=== PATIENT | male | born 2000 | race Caucasian/White ===

== ENCOUNTER 2024-10-21 13:09 | Emergency (ER) | payer SELFPAY ==
[2024-10-21 13:23] VITALS: BP 120/52; PULSE 54; RESP 16; TEMP 36.8; O2SAT 100; BMI 25.7
[2024-10-21 13:26] VITALS: BP 110/85; PULSE 85; RESP 18; TEMP 36.8; O2SAT 100
--- OUTSIDE RECORDS SUMMARY | 2024-10-21 13:38 | XMS_ITS | Clinical Summary ---
Author Organization [facility] Address [address] [place] [address] Care Team Providers Care Life Teacher Name Role Phone Manuel David MD Primary Care Provider [phone] Medications No known medications Active Problems No known active problems Social History Tobacco Use Types Packs/Day Years Used Date Smoking Tobacco: Never Assessed Sex and Gender Information Value Date Recorded Sex Assigned at Not on file Legal Sex Male 8:38 PM EDT Gender Identity Not on file Sexual Orientation Not on file Last Filed Vital Signs Vital Sign Reading Time Taken Comments Blood Pressure 144/77 01/24/2024 10:22 AM EST Pulse 60 01/24/2024 10:22 AM EST Temperature - - Respiratory Rate - - Oxygen Saturation 99% 01/24/2024 10:22 AM EST Inhaled Oxygen Concentration - - Weight - - Height - - Body Mass Index - - Plan of Treatment Health Maintenance Due Date Last Done Comments Dental Oral Exam 2002 Dental Prophylaxis 2002 Dental X-Ray: Bitewings 2002 Dental X-Ray: Full Mouth 2002 [facility]-Depression Screening 2002 [facility]-HIV Screening 2002 [facility]-Hepatitis C Screening 2002 [facility]-Infant/Child/Adol SDOH Screenings 2002 HPV Vaccines (1 - Male 3-dose series) 2017 [facility]- SDOH Screenings 2020 [facility]-Adult SDOH Screenings 2020 [facility]-SBCUI-20 Vaccine (1 - season) 2023 [facility]-DTaP,Tdap,and Td Vaccines (7 - Td or Tdap) 11/07/2024 11/07/2014, 08/05/2006, 11/07/2003, Additional history exists [facility]-Influenza Vaccine (#1) 2024 [facility]-Zoster Vaccines (1 of 2) 2052 08/05/2006, 08/26/2003 [facility]-HIB Vaccines Completed 08/26/2003, 03/2002, 2002, Additional history exists [facility]-Hepatitis B Vaccines Completed 004, 2002, 2002 [facility]-IPV Vaccines Completed 08/05/2006, , 2002, Additional history exists [facility]-Varicella Vaccines Completed 08/05/2006, 2003 [facility]-Hepatitis A Vaccines Completed 06/04/2015, 10/13 [facility]-Pneumococcal Vaccine: Pediatrics (0 to 5 Years) and At-Risk Patients (6 to 49 Years) Aged Out No longer eligible based on patient's age to complete this topic [facility]-Rotavirus Vaccines Aged Out No lo nger eligible based on patient's age to complete this topic Insurance Member Subscriber Plan / Payer (Ef fective 2023-Present) Name:Godfrey Bloom Relation to Subscriber:Self Name:Godfrey Bloom Payer ID:Not on file Type:Not on file Address: [address] [address] Care Teams Life Teacher Relationship Specialty Start Date End Date Manuel David MD [address] [place] [address] [place] [address] PCP - General 07/25/20
--- NOTE | 2024-10-21 13:40 | PC.NURSE ---
patient endorses that he blieves he removed foreign body out of eye
--- NOTE | 2024-10-21 13:44 | HMH.EDGENADL ---
Discharge Plan Disposition Patient Disposition: Left Against Medical Advice Referrals Follow up/Referrals: Provider,Referral, [Primary Care Provider, Medical] - See instructions Clinical Impressions Clinical Impression: Left against medical advice Print Language Print Language: Thai Discharge ED Provider: Leandro Grewal General Adult HPI <JOSY Valadez - Last Filed: 10/21/24 14:20> General Chief complaint: Eye Problems Stated complaint: AO-poss object in L eye Time Seen by Provider: 10/21/24 13:12 Mode of Arrival: Ambulatory Source of Information: Patient Description of Symptoms (Recalled from ER Triage Doc. by RN): patient presents to the emergency room for evaluation of steel in his left eye. patient was working on a truck with his father in law when something flung back and got in his eye. patient is unsure if it is actually metal. History of Present Illness HPI narrative: Patient presents with foreign body sensation in his left eye. He reports that he was taking a bolt off of a truck with some small pieces of metal coming off. He reports that he does see a foreign body on the medial aspect of the left eye. He denies wearing any contacts. Denies any eye discharge. This occurred around 1 and half hours ago. He has tried irrigation without success. Denies fevers or vomiting. Unknown last tetanus. MD complaint: Foreign body in eye Onset (ago): hour(s) Location: eyes Radiation: non-radiation Severity: mild Consistency: constant Relieving factors: none Exacerbating factors: none Associated symptoms: denies other symptoms Treatments prior to arrival: other (Irrigation) Related Data Allergies Allergy/AdvReac Type Severity Reaction Status Date / Time nut - unspecified Allergy Rash Verified 10/21/24 13:26 PFSH <JOSY Valadez - Last Filed: 10/21/24 14:20> [facility] Disclaimer: The information contained in this section may have been updated after the patient was seen, as this information can be updated by other users. Social History (Updated 10/21/24 @ 14:20 by JOSY Valadez) Smoking Status: Never smoker alcohol intake: never current occupational status: other Travel in the last 8 weeks?: None Have you lived/traveled outside US in past 30 days?: No Contact w/someone who lives/traveled outside US past 30 days?: No Exposure to someone with infectious disease in past 14 days?: No Do you have a fever (greater than 100.4 F or 38 C)?: No Have you tested positive for COVID-19?: No Exposed to someone with COVID-19 in past 14 days?: No Do you have a sore throat?: No Do you have a cough?: No Do you have any weakness?: No Do you have any diarrhea?: No Are you experiencing any unusual bleeding?: No Do you have any muscle aches/pain?: No Do you have any abdominal pain?: No Are you experiencing loss of taste or smell?: No <JOSY Valadez - Last Filed: 10/21/24 14:20> ROS Obtained: Yes Systems reviewed as appropriate & no additional complaints except as documented Physical Exam <JOSY Valadez Last Filed: 10/21/24 14:20> General General appearance: alert and in no apparent distress Head Head exam: atraumatic and normocephalic Eye Eye exam: Present other (Left eye 2 o'clock corneal FB noted 1-2 m ) Chest Chest inspection: Present symmetric chest wall rise Respiratory Respiratory exam: Present normal lung sounds bilaterally; Absent wheezes or stridor Cardiovascular Cardiovascular exam: Present regular rate and normal rhythm; Absent systolic murmur Extremities Exam Extremities exam: Present full ROM Neurological Exam Neurological exam: Present alert and oriented X3 Psychiatric Psychiatric exam: Present normal affect and normal mood Skin Skin exam: Present warm, dry and intact Medical Decision Making <JOSY Valadez - Last Filed: 10/21/24 14:20> Medical Records Screening: Per USPSTF and CDC recommendations, given the prevalence of disease in our region, it is our hospital?s policy to screen for HIV and viral Hepatitis for all patients aged 18 and over and those with ongoing risk factors. Moris Inquiry Pt receiving controlled substance: No Vital Signs: 10/21/24 13:23 10/21/24 13:26 10/21/24 14:06 Temperature 98.2 F 98.2 F 98.2 F Temperature Source Oral Oral Oral Pulse Rate 85 85 Pulse Rate [Right Radial] 54 L Respiratory Rate 16 18 18 Blood Pressure 110/85 110/85 Blood Pressure [Right Arm] 120/52 L Blood Pressure Mean [Right Arm] 74 Blood Pressure Source Automatic Cuff Automatic Cuff Blood Pressure Source [Right Arm] Automatic Cuff Blood Pressure Position Sitting Sitting Blood Pressure Position [Right Arm] Sitting 02 Sat by Pulse Oximetry 100 100 Oxygen Delivery Method Room Air Room Air Room Air Orders (Tests/Meds): ED MEDICATIONS Discontinued Medications Generic Name Dose Route Start Last Admin Trade Name Freq PRN Reason Stop Dose Admin Tetanus/Reduced Diphtheria/Acell Pertussis 0.5 ml 10/21/24 13:34 10/21/24 13:48 Tet/Diphth/Pert-Adult 0.5ml Syringe IM 10/21/24 13:35 Not Given .ONCE ONE Tetracaine HCl 0 ml 10/21/24 13:34 Tetracaine 0.5% Opth Janny 15ml OP 10/21/24 13:35 ONCE ONE Medical Decision Narrative: In summary patient is a 24-year-old man who presents the emergency department for evaluation of foreign body in eye. Patient is hemodynamically upon arrival, afebrile. Foreign body noted at approximately 2 o'clock location in the left eye. Differential diagnosis includes foreign body, rust ring, corneal abrasion. Initial workup will be conducted with tetracaine application with fluorescein and Webb lamp exam. Initial inventions include tetracaine and tetanus. I initially evaluated the patient and placed orders. The patient then left AMA while I was in the room with another patient. I was not able to discuss this with them prior to signing out. <Leandro Grewal MD - Last Filed: 10/21/24 14:52> Vital Signs: 10/21/24 13:23 10/21/24 13:26 10/21/24 14:06 Temperature 98.2 F 98.2 F 98.2 F Temperature Source Oral Oral Oral Pulse Rate 85 85 Pulse Rate [Right Radial] 54 L Respiratory Rate 16 18 18 Blood Pressure 110/85 110/85 Blood Pressure [Right Arm] 120/52 L Blood Pressure Mean [Right Arm] 74 Blood Pressure Source Automatic Cuff Automatic Cuff Blood Pressure Source [Right Arm] Automatic Cuff Blood Pressure Position Sitting Sitting Blood Pressure Position [Right Arm] Sitting 02 Sat by Pulse Oximetry 100 100 Oxygen Delivery Method Room Air Room Air Room Air Orders (Tests/Meds): ED MEDICATIONS Discontinued Medications Generic Name Dose Route Start Last Admin Trade Name Freq PRN Reason Stop Dose Admin Tetanus/Reduced Diphtheria/Acell Pertussis 0.5 ml 10/21/24 13:34 10/21/24 13:48 Tet/Diphth/Pert-Adult 0.5ml Syringe IM 10/21/24 13:35 Not Given .ONCE ONE Tetracaine HCl 0 ml 10/21/24 13:34 Tetracaine 0.5% Opth Janny 15ml OP 10/21/24 13:35 ONCE ONE Medical Decision Narrative: In summary patient is a 24-year-old man who presents the emergency department for evaluation of foreign body in eye. Patient is hemodynamically upon arrival, afebrile. Foreign body noted at approximately 2 o'clock location in the left eye. Differential diagnosis includes foreign body, rust ring, corneal abrasion. Initial workup will be conducted with tetracaine application with fluorescein and Webb lamp exam. Initial inventions include tetracaine and tetanus. I initially evaluated the patient and placed orders. The patient then left AMA while I was in the room with another patient. I was not able to discuss this with them prior to signing out. I was consulted by the RITCHIE, and we discussed the complexity of the problems being addressed. I approve the treatment and management plan for this patient's care in the emergency department, thus performing a substantive portion of the medical decision making. Leandro Grewal MD Critical Care <JOSY Valadez - Last Filed: 10/21/24 14:20> Critical Care Time Critical Care Time: No
--- NOTE | 2024-10-21 13:50 | PC.NURSE ---
patient refused tdap vaccination order. provider notified
[2024-10-21 14:06] VITALS: BP 110/85; PULSE 85; RESP 18; TEMP 36.8; O2SAT 100
== END 2024-10-21 14:02 | disposition left against medical advice (07) ==
PROVIDERS: Emergency Provider Student in an Organized Health Care Education/Training Program
DX: T15.02XA Foreign body in cornea, left eye, initial encounter (principal); W20.8XXA Other cause of strike by thrown, projected or falling object, initial encounter
CPT/HCPCS: 90471; 99283

== ENCOUNTER 2025-01-01 06:03 | Emergency (ER) | payer MEDICAID, SELFPAY ==
--- OUTSIDE RECORDS SUMMARY | 2025-01-01 06:09 | XMS_ITS | Clinical Summary ---
Author Organization [facility] Address [address] [place] [address] Care Team Providers Care Upholstery Trimmer Name Role Phone Manuel David MD Primary Care Provider [phone] Medications No known medications Active Problems No [...] [facility]-HIV Screening 2002 [facility]-Hepatitis C Screening 2002 [facility]-/Child/Adol SDOH Screenings 2002 HPV Vaccines (1 - Male 3-dose series) 2017 [facility]- SDOH Screenings 2020 [facility]-Adult SDOH Screenings 2020 [facility]-DTaP,Tdap,and Td Vaccines (7 - Td or Tdap) 11/07/2024 11/07/2014, 08/05/2006, 11/07/2003, Additional history exists [facility]-PKPMW-47 Vaccine ( - season) 2024 [facility]-Influenza Vaccine (#1) 2024 [facility]-Zoster Vaccines (1 [...] patient's age to complete this topic Insurance Care Teams Upholstery Trimmer Relationship Specialty Start Date End Date Manuel David MD [address] [place] [address] [place] [address] PCP - General 07/25/20
--- OUTSIDE RECORDS SUMMARY | 2025-01-01 06:09 | XMS_ITS | Data Portability ---
Author Organization [place] - [facility] Address [address] [place] [address] Care Team Providers Care Life Skills Specialist Name Role Phone ODELL ARANA Primary Care Provider Assessment Encounter Date Assessment Date Assessment LastModified by Organization Details LastModified Time 08/24/2023 08/24/2023 Patient with moderate sized wart on the webbing of his right hand between his 4th and 5th digit. There are multiple growths and will probably require some laser treatment he has a solitary wart on the top of his left great toe. Applied some verruca freeze here in the office without complication. Patient would also like some general health maintenance labs, however he has not fast will make a follow-up appointment 3 months at that time do his fasting labs. [email or web address] Not available 08/24/2023 13:47:05 Plan of Treatment Reminders Order Date Submit Date Provider Last Modified By Organization Details Last Modified Time Details Appointments None recorded. Lab None recorded. Referral dermatolog ist referral - Rather large wart on webbing right hand 2023 024 [facility], [address], [place], [address], 14:58:28 Procedures cryosurger y (PROC) 2023 024 [email or web address] Not available 08:17:33 Surgeries None recorded. Imaging None recorded. Medication Orders clotrimazo le-betamet hasone 1 %-0.05 % topical cream 2023 024 [id number], [address] [place], [address], 13:40:42 nystatin 100,000 unit/gram topical powder 2023 024 [id number], [address] [place], [address], 13:40:42 Patient TargetsNo targets recorded. Patient InstructionsNo instructions recorded. Reason for Referral Cut Pressman Referral for V erruca vulgaris Rather large wart on webbing right hand Referring Physician: Odell Arana [facility], Encounter Date: 08/24/2023 Procedures Surgical History Date Name Laterality Status Provider Name and Address Organization Details Recorded Time 0 [facility]end[facility] completed [facility] 08/24/2023 13:06:27 Imaging Results None recorded. Procedure Notes None recorded. Medical Equipment None Reported. Allergies No known drug allergies Medications Name Sig Start Date Stop Date Status Note LastModified by Organization Details LastModified Time benzoyl peroxide 10 % topical cleanser active Not Available Not Available Not Available clotrimazo le-betamet hasone 1 %-0.05 % topical cream APPLY TO AFFECTED AND SURROUNDING AREAS EVERY MORNING AND EVENING FOR 2 WEEKS active Not Available Not Available No t Available nystatin 100,000 unit/gram topical powder APPLY TO AFFECTED AREA TWICE A DAY active Not Available Not Available Not Available Vitals Date Recorded Body height Body mass index (BMI) Body weight Body temperature Oxygen saturation Oxygen saturation in Arterial blood by Pulse oximetry Heart rate Systolic And Diastolic Provider Name and Address Organization Details Last Updated DateTime 4 165.1 cm 25 kg/m2 99669.8 6 g 97.9 [degF] 98 % 98 % 62 /min 98/62 mm[Hg] [facility] 13:06:03 Social History Question Answer Notes LastModified by Organization D etails LastModified Time Do You Have An Advance Directive? No Information n ot available 08/24/2023 Are You Blind Or Do You Have Difficulty Seeing? No [email or web address] Information n ot available 08/24/2023 Are You Passively Exposed To Smoke? No Information no t available 08/24/2023 Sex: Male Functional Status Question Answer Note LastModified by Organizat ion Details LastModified Time Do you use any illicit or recreational drugs? No [email or web address] Information not available 08/24/2023 What is your level of alcohol consumption? 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 Moderate [email or web address] Information not available 08/24/2023 Mental Status None recorded. Family History Nothing Reported. Medical History No medical history recorded. Past Encounters Encounter ID Performer Location Encounter Start Date Encounter Closed Date Diagnosis/Indication Diagnosis SNOMED-CT Code Diagnosis ICD10 Code Diagnosis IMO Codes Diagnosis Note [id number] Odell Arana DO [facility]- Dept [address] [place] [address] 08/24/2023 12:33:31 08/24/2023 13:32:14 Verruca vulgaris 34583830 B07.8 Abdominal pain 72892284 R10.9 discussed the importance of eating healthy diet Tinea pedis 3516467 B35. 3 Health Concerns Section Related Observation LastModified by Organization Detai ls LastModified Time None Recorded Concern Status LastModified by Organization Details LastModified Time None Recorded Advance Directives Directive N: Payers Insurance Date Sequence Insurance Name Policy Number Policy Galan Covered Member ID Galan Member ID Guarantor Name 08/25/2023 1 [employer] (O) Godfrey Bloom [id number] Godfrey Bloom 08/25/2023 1 [employer] (MEDICAID REPLACEMENT - O) Godfrey Bloom [id number] Godfrey Bloom Notes Date Note Type Note Provider Name and Address Organization Details Recorded Time 08/24/2023 text/html patient is a very pleasant 23-year-old white male who comes in today to establish care at the clinic. patient is complaining of some warts and rash on his feet. 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 patient states about 6 months ago he developed a small wart on his right hand however over time its enlarged. He also has a wart on his left great toe. Patient has use some mrmo-bhj-fospztb freeze spray along with compound W with minimal relief. He is also complaining of a red dry irritated rash on the bottom of his feet he was diagnosed with athlete's feet in the past, he reports having some powder which she put in his boots it seemed to help but he is ran out. Odell Arana, [address], [address], [place], [address], [facility] [[email or web address]] - [facility] - [place] & [place] 08/24/2023 13:47:25
[2025-01-01 06:20] VITALS: BP 144/84; PULSE 98; RESP 16; TEMP 37.1; O2SAT 99; BMI 25.7
[2025-01-01 06:23] VITALS: BP 144/84; PULSE 98; RESP 16; TEMP 37.1; O2SAT 99
--- NOTE | 2025-01-01 06:27 | HMH.EDGENADL ---
Discharge Plan Disposition Patient Disposition: Home, Self-Care Prescriptions Prescriptions: New ondansetron 4 mg tablet,disintegrating 4 mg PO Q6H PRN (Reason: nausea and vomiting) Qty: 16 0RF Referrals Follow up/Referrals: Les Toney II, MD [Staff Physician, Gastroenterology] - See instructions Provider,MD Lilia [Primary Care Provider, Medical] - See instructions Activity Restrictions/Add. Instructions Additional Instructions/Restrictions: I am referring you to Dr. Toney with the gastroenterology team to further investigate your abdominal pain, nausea and vomiting as well as your elevated pancreas enzymes. You are being prescribed Zofran to help with nausea. Take this as prescribed. I encourage you to drink a clear liquid diet until your symptoms have resolved and slowly introduce foods back into your diet and avoid fatty and greasy foods. If you develop any new or worsening symptoms, or if you become concerned for your health for any reason, return to the emergency department for evaluation. Clinical Impressions Clinical Impression: Abdominal pain, Elevated lipase Instructions Patient Instructions: Acute Pancreatitis, DI for Diarrhea and Traveler's Diarrhea in Adults, DI for Diarrhea and Traveler's Diarrhea in Children, DI for Nausea in Adults, DI for Nausea in Children Print Language Print Language: Malay Discharge ED Provider: Wili Li General Adult HPI <Wili Li MD - Last Filed: 01/01/25 06:57> General Chief complaint: Nausea/Vomiting/Diarrhea Stated complaint: stomach pain, vomiting Time Seen by Provider: 01/01/25 06:10 Mode of Arrival: Ambulatory Source of Information: Patient Description of Symptoms (Recalled from ER Triage Doc. by RN): PT presents to the ED for evaluation of vomiting. PT stated he has had x2 episodes of vomiting this am. PT stated he had diarrhea on 05/03/2024. PT denies trouble urinating. Denies meds taking for vomiting. History of Present Illness HPI narrative: 24-year-old male presents for abdominal pain and vomiting. He reports that he has had this happen intermittently throughout his life and it did not get any better after getting his appendix out. He reports that he woke up feeling like this. It usually gets better within a few hours spontaneously. Reports nonbloody vomiting. Abdominal pain is midline and bilateral lower abdomen. Denies significant testicular pain. Denies any pain in his upper abdomen. Denies any urinary symptoms. Related Data Previous Rx's ?Medication ?Instructions ?Recorded ondansetron 4 mg disintegrating 4 mg PO Q6H PRN nausea and 01/01/25 tablet vomiting #16 tabs Allergies Allergy/AdvReac Type Severity Reaction Status Date / Time nut - unspecified Allergy Rash Verified 01/01/25 06:45 PFS <Wili Li MD - Last Filed: 01/01/25 06:57> [facility] Disclaimer: The information contained in this section may have been updated after the patient was seen, as this information can be updated by other users. Social History (Updated 10/21/24 @ 14:20 by JOSY Valadez) Smoking Status: Never smoker alcohol intake: never current occupational status: other Travel in the last 8 weeks?: None Have you lived/traveled outside [place] in past 30 days?: No Contact w/someone who lives/traveled outside [place] past 30 days?: No Exposure to someone with infectious disease in past 14 days?: No Do you have a fever (greater than 100.4 F or 38 C)?: No Have you tested positive for COVID-19?: No Exposed to someone with COVID-19 in past 14 days?: No Do you have a sore throat?: No Do you have a cough?: No Do you have any weakness?: No Do you have any diarrhea?: No Are you experiencing any unusual bleeding?: No Do you have any muscle aches/pain?: No Do you have any abdominal pain?: No Are you experiencing loss of taste or smell?: No <Wili Li MD - Last Filed: 01/01/25 06:57> ROS Obtained: Yes All systems reviewed & no additional complaints except as documented Physical Exam <Wili Li MD - Last Filed: 01/01/25 06:57> General General appearance: alert and in no apparent distress Head Head exam: atraumatic and normocephalic Eye Eye exam: Present normal appearance, PERRL and EOMI ENT ENT exam: Present normal oropharynx and normal external ear exam Neck Neck exam: Present normal inspection and full ROM Chest Chest inspection: Present normal inspection and symmetric chest wall rise; Absent tenderness Respiratory Respiratory exam: Present normal lung sounds bilaterally; Absent respiratory distress Cardiovascular Cardiovascular exam: Present regular rate and normal rhythm Abdominal Exam Abdominal exam: Present soft; Absent distention, tenderness or guarding Extremities Exam Extremities exam: Present normal inspection; Absent edema or joint swelling Back Exam Back exam: Present normal inspection; Absent tenderness Neurological Exam Neurological exam: Present alert and oriented X3; Absent motor sensory deficit Psychiatric Psychiatric exam: Present normal affect and normal mood Skin Skin exam: Present warm, dry and normal color Lymphatic Lymphatic Findings: no adenopathy Medical Decision Making <Wili Li MD - Last Filed: 01/01/25 06:57> Medical Records Medical records reviewed: Yes I reviewed the patient's medical records. Screening: Per USPSTF and CDC recommendations, given the prevalence of disease in our region, it is our hospital?s policy to screen for HIV and viral Hepatitis for all patients aged 18 and over and those with ongoing risk factors. Moris Inquiry Pt receiving controlled substance: No Moris was queried for this patient: No Vital Signs: 01/01/25 06:20 01/01/25 06:23 01/01/25 07:01 Temperature 98.7 F 98.7 F Temperature Source Oral Oral Pulse Rate 98 H 56 L Pulse Rate [Right] 98 H Respiratory Rate 16 16 Blood Pressure 144/84 H 116/59 L Blood Pressure [Right Arm] 144/84 H Blood Pressure Mean [Right Arm] 104 02 Sat by Pulse Oximetry 99 99 97 Oxygen Delivery Method Room Air Room Air Room Air 01/01/25 07:30 Temperature Temperature Source Pulse Rate 55 L Pulse Rate [Right] Respiratory Rate Blood Pressure 115/55 L Blood Pressure [Right Arm] Blood Pressure Mean [Right Arm] 02 Sat by Pulse Oximetry 98 Oxygen Delivery Method Room Air Lab Data Lab results reviewed: Yes I reviewed the patient's lab results. Lab Results 01/01/25 06:09: Urine Color Yellow, Urine Appearance Clear, Urine pH 5.5, Ur Specific [place] >= 1.030, Urine Protein Negative, Urine Glucose (UA) Negative, Urine Ketones Negative, Urine Blood Negative, Urine Nitrate Negative, Urine Bilirubin Negative, Urine Urobilinogen 0.2, Ur Leukocyte Esterase Negative, Urine RBC None, Urine WBC 3-5, Ur Squamous Epith Cells 3-5, Urine Bacteria Trace 01/01/25 06:35: WBC 14.6 H, RBC 5.19, Hgb 15.4, Hct 44.5, MCV 85.7, MCH 29.7, MCHC 34.6, RDW 11.8, Plt Count 314, MPV 9.6, Neut % (Auto) 82.7 H, Lymph % (Auto) 10.8, [place] % (Auto) 4.8, Eos % (Auto) 0.9, Baso % (Auto) 0.3, Neut # (Auto) 12.0 H, Lymph # (Auto) 1.6, [place] # (Auto) 0.7, Eos # (Auto) 0.1, Baso # (Auto) 0.0, Sodium 139, Potassium 4.2, Chloride 101, Carbon Dioxide 27, Anion Gap 15.2 H, BUN 15, Creatinine 0.80, Estimated Creat Clear 144, Estimated GFR 121, Est GFR ( Amer) 146, Glucose 118 H, Calcium 8.9, Magnesium 1.9, Total Bilirubin 0.4, AST 29, ALT 30, Alkaline Phosphatase 57, Total Protein 8.5 H, Albumin 4.9, Globulin 3.6 H, Albumin/Globulin Ratio 1.4, Triglycerides 50, Lipase 442 H 01/01/25 06:35 01/01/25 06:35 Orders (Tests/Meds): ED MEDICATIONS Discontinued Medications Generic Name Dose Route Start Last Admin Trade Name Freq PRN Reason Stop Dose Admin Ketorolac Tromethamine 30 mg 01/01/25 06:31 01/01/25 06:41 Ketorolac 30mg/Ml Vial IV 01/01/25 06:32 30 mg ONCE ONE Administration Ondansetron HCl 4 mg 01/01/25 06:31 01/01/25 06:41 Ondansetron 4mg/2ml Vial IV 01/01/25 06:32 4 mg ONCE ONE Administration ORDERS Category Date Time Status CT abdomen pelvis wo con Stat Cat Scan 01/01/25 07:37 Completed POCUS Point of Care (ER Only) Stat Exams 01/01/25 07:16 Completed CBC w/Auto Diff [Complete Blood Count Auto Diff] Stat Lab 01/01/25 06:35 Completed CMP [Comprehensive Metabolic Panel] Stat Lab 01/01/25 06:35 Completed Lipase Stat Lab 01/01/25 06:35 Completed Magnesium Stat Lab 01/01/25 06:35 Completed Triglycerides Stat Lab 01/01/25 06:35 Completed UA [Urinalysis and Microscopic] Stat Lab 01/01/25 06:09 Completed Medical Decision Narrative: 24-year-old male with history of intermittent abdominal pain and vomiting presents for lower abdominal pain and vomiting.. History was obtained via interactive discussion with patient, family. On arrival, patient is [afebrile, hemodynamically stable, satting appropriately, alert, oriented x4, GCS 15], moving all extremities spontaneously. Full physical exam performed and significant for no significant abdominal tenderness on exam. Patient is actively vomiting however. Differential includes but is not limited to gastroenteritis, intussusception, UTI, kidney stone. Patient was given Toradol and Zofran for symptomatic management and correction of underlying abnormalities. Workup initiated including CBC CMP lipase urinalysis. On re-evaluation, patient [remains afebrile, HD stable.] Laboratory workup independently interpreted by me and significant for []. Imaging independently interpreted by me and significant for []. See radiology read for full review of final results. EKG independently interpreted by me and significant for []. [] was considered, but deemed unnecessary due to []. Given patient history, exam and workup, patient's presentation most likely represents []. <Leandro Grewal MD - Last Filed: 01/01/25 08:20> Vital Signs: 01/01/25 06:20 01/01/25 06:23 01/01/25 07:01 Temperature 98.7 F 98.7 F Temperature Source Oral Oral Pulse Rate 98 H 56 L Pulse Rate [Right] 98 H Respiratory Rate 16 16 Blood Pressure 144/84 H 116/59 L Blood Pressure [Right Arm] 144/84 H Blood Pressure Mean [Right Arm] 104 02 Sat by Pulse Oximetry 99 99 97 Oxygen Delivery Method Room Air Room Air Room Air 01/01/25 07:30 Temperature Temperature Source Pulse Rate 55 L Pulse Rate [Right] Respiratory Rate Blood Pressure 115/55 L Blood Pressure [Right Arm] Blood Pressure Mean [Right Arm] 02 Sat by Pulse Oximetry 98 Oxygen Delivery Method Room Air Lab Data Lab Results 01/01/25 06:09: Urine Color Yellow, Urine Appearance Clear, Urine pH 5.5, Ur Specific [place] >= 1.030, Urine Protein Negative, Urine Glucose (UA) Negative, Urine Ketones Negative, Urine Blood Negative, Urine Nitrate Negative, Urine Bilirubin Negative, Urine Urobilinogen 0.2, Ur Leukocyte Esterase Negative, Urine RBC None, Urine WBC 3-5, Ur Squamous Epith Cells 3-5, Urine Bacteria Trace 01/01/25 06:35: WBC 14.6 H, RBC 5.19, Hgb 15.4, Hct 44.5, MCV 85.7, MCH 29.7, MCHC 34.6, RDW 11.8, Plt Count 314, MPV 9.6, Neut % (Auto) 82.7 H, Lymph % (Auto) 10.8, [place] % (Auto) 4.8, Eos % (Auto) 0.9, Baso % (Auto) 0.3, Neut # (Auto) 12.0 H, Lymph # (Auto) 1.6, [place] # (Auto) 0.7, Eos # (Auto) 0.1, Baso # (Auto) 0.0, Sodium 139, Potassium 4.2, Chloride 101, Carbon Dioxide 27, Anion Gap 15.2 H, BUN 15, Creatinine 0.80, Estimated Creat Clear 144, Estimated GFR 121, Est GFR ( Amer) 146, Glucose 118 H, Calcium 8.9, Magnesium 1.9, Total Bilirubin 0.4, AST 29, ALT 30, Alkaline Phosphatase 57, Total Protein 8.5 H, Albumin 4.9, Globulin 3.6 H, Albumin/Globulin Ratio 1.4, Triglycerides 50, Lipase 442 H Orders (Tests/Meds): ED MEDICATIONS Discontinued Medications Generic Name Dose Route Start Last Admin Trade Name Freq PRN Reason Stop Dose Admin Ketorolac Tromethamine 30 mg 01/01/25 06:31 01/01/25 06:41 Ketorolac 30mg/Ml Vial IV 01/01/25 06:32 30 mg ONCE ONE Administration Ondansetron HCl 4 mg 01/01/25 06:31 01/01/25 06:41 Ondansetron 4mg/2ml Vial IV 01/01/25 06:32 4 mg ONCE ONE Administration ORDERS Category Date Time Status CT abdomen pelvis wo con Stat Cat Scan 01/01/25 07:37 Completed POCUS Point of Care (ER Only) Stat Exams 01/01/25 07:16 Completed CBC w/Auto Diff [Complete Blood Count Auto Diff] Stat Lab 01/01/25 06:35 Completed CMP [Comprehensive Metabolic Panel] Stat Lab 01/01/25 06:35 Completed Lipase Stat Lab 01/01/25 06:35 Completed Magnesium Stat Lab 01/01/25 06:35 Completed Triglycerides Stat Lab 01/01/25 06:35 Completed UA [Urinalysis and Microscopic] Stat Lab 01/01/25 06:09 Completed Medical Decision Narrative: 24-year-old male with history of intermittent abdominal pain and vomiting presents for lower abdominal pain and vomiting.. History was obtained via interactive discussion with patient, family. On arrival, patient is [afebrile, hemodynamically stable, satting appropriately, alert, oriented x4, GCS 15], moving all extremities spontaneously. Full physical exam performed and significant for no significant abdominal tenderness on exam. Patient is actively vomiting however. Differential includes but is not limited to gastroenteritis, intussusception, UTI, kidney stone. Patient was given Toradol and Zofran for symptomatic management and correction of underlying abnormalities. Workup initiated including CBC CMP lipase urinalysis. On re-evaluation, patient [remains afebrile, HD stable.] Laboratory workup independently interpreted by me and significant for []. Imaging independently interpreted by me and significant for []. See radiology read for full review of final results. EKG independently interpreted by me and significant for []. [] was considered, but deemed unnecessary due to []. Given patient history, exam and workup, patient's presentation most likely represents []. Leandro Grewal MD At the time my assumption of care, plan was to follow-up patient's laboratory studies and reassessment. Ultimately, patient's workup showed Leukocytosis of 14.6 with neutrophilia. No anemia. Platelets within normal limits. Mildly elevated anion gap of 15.2 but electrolytes within normal limits. No RADHA. Liver enzymes, alk phos and bilirubin within normal limits. Magnesium normal at 1.9. Lipase is mildly elevated at 442. Urine without blood or evidence of infection. On reassessment, patient states that he is overall feeling well. He has vomited shortly after arriving to the emergency department but has not vomited since. He states that he has had episodes of vomiting and abdominal pain like this ever since he was a child but has never had a formal diagnosis. He states that he does not drink alcohol. He does not take any medications. He has had an appendectomy but still has his gallbladder. He does not believe he has had any issues with his gallbladder. On reassessment, he does have mostly lower abdominal pain but he is tender in the epigastric and right upper quadrants. [id number] right upper quadrant ultrasound was performed. I do not appreciate any gallstones, biliary sludge. Gallbladder appears normal in size. No gallbladder wall thickening or pericholecystic fluid. Common bile duct is within normal limits. He does not have a sonographic Morrell sign. 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 Will also obtain triglyceride levels. A CT abdomen pelvis with IV contrast was ordered, however patient stated that when he was young he had IV contrast and it made him feel warm all over and he does not want the contrast with his CT scan. I explained that contrast will give a clear picture of what could be going on, such as identifying fat stranding and vasculature, however patient does not want contrast still. Will obtain CT abdomen pelvis without contrast instead. Patient's triglycerides are normal at 50. CT imaging was interpreted by me personally. I do not appreciate any acute findings on patient CT imaging. See radiology report for details. On reassessment, patient remains in stable condition. I will refer him to Dr. Toney for his prolonged nausea, vomiting abdominal pain in the setting of mildly elevated lipase without identifiable cause. Return precautions were given. All questions were answered. He demonstrated understanding and was in agreement with this plan. He was then discharged from the emergency department in stable condition. Procedures <Wili Li MD - Last Filed: 01/01/25 06:57> Risk/Benefits of Procedure(s) Were Explained: Yes <Leandro Grewal MD - Last Filed: 01/01/25 08:20> Limited Ultrasound Indication:: Limited RUQ ultrasound performed by hi, Leandro Grewal MD Indication: Abdominal pain, nausea and vomiting, elevated lipase Identified structures: -Gallbladder -Gallbladder wall -Common bile duct -Liver Findings: Sonographic Morrell sign: Absent Gallstones: Absent Sludge: Absent Pericholecystic fluid: Absent Maximal GB wall thickness (mm): Normal is </= 3mm Normal Common bile duct width (mm): Normal is </= 6mm Normal Gallbladder width (cm): Normal is < 4cm Normal Gallbladder length (cm): Normal is < 10cm Normal Impression: -Normal gallbladder Images were saved to permanent archive The study was technically adequate CPT 18096-54 This study was performed by me, and I personally interpreted all images/videos. Based on my clinical judgement, these images were adequate and did not necessitate further imaging. Critical Care <Wili Li MD - Last Filed: 01/01/25 06:57> Critical Care Time Critical Care Time: No
[2025-01-01] MEDS: ONDANSETRON 4MG/2ML VIAL 4 MG IV (06:41)
[2025-01-01] MEDS: KETOROLAC 30MG/ML VIAL 30 MG IV (06:41)
[2025-01-01 06:45] LABS: Hematocrit 44.5 % (42.0-52.0); Hemoglobin 15.4 g/dL (14.1-18.0); Immature Granulocytes % 0.5 %; Mean Corpuscular HGB Conc 34.6 g/dL (31.8-35.4); Mean Corpuscular Hemoglobin 29.7 pg (27.0-31.2); Mean Corpuscular Volume 85.7 fl (80-94); Nucleated Red Blood Cells % 0 %; Platelet Count 314 K/mm3 (142-424); Red Blood Count 5.19 M/mm3 (4.60-6.20); Red Cell Distribution Width-SD 36.6 fL; White Blood Count 14.6 K/mm3 (4.8-10.8)
[2025-01-01 06:48] LABS: Microscopic, Urine URINE MICROSCOPIC (MICROSCOPIC)
[2025-01-01 06:53] LABS: Albumin Level 4.9 g/dl (3.5-5.0); Chloride 101 mmol/L (98-107); Potassium 4.2 mmoL/L (3.5-5.1); Sodium 139 mmol/L (136-145)
[2025-01-01 06:56] LABS: Alanine Aminotransferase 30 U/L (12-78); Albumin/Globulin Ratio 1.4 (1.1-1.8); Alkaline Phosphatase 57 U/L (38-126); Anion Gap 15.2 mEq/L (5-15); Aspartate Amino Transferase 29 U/L (17-59); Bilirubin,Total 0.4 mg/dl (0.2-1.3); Blood Urea Nitrogen 15 mg/dl (9-20); Calcium 8.9 mg/dl (8.4-10.2); Carbon Dioxide 27 mmol/L (22.0-30.0); Creatinine Clearance Estimated 144 mL/min (50-200); Creatinine,Serum 0.80 mg/dl (0.66-1.25); Estimated Glomerular Filt Rate 121 ml/min (>60); GFR (African American) 146 ML/MIN (>60); Globulin 3.6 g/dL (1.3-3.2); Glucose 118 mg/dl (74-100); Lipase 442 U/L (23-300); Magnesium 1.9 mg/dl (1.6-2.3); Total Protein,Serum 8.5 g/dl (6.3-8.2)
[2025-01-01 07:01] VITALS: BP 116/59; PULSE 56; O2SAT 97
[2025-01-01 07:04] LABS: Bilirubin,Urine Negative (Negative); Color,Urine YELLOW (Yellow); Glucose,Urine (UA) Negative (Negative); Ketones,Urine Negative (Negative); Leukocyte Esterase,Urine Negative (Negative); PH,Urine 5.5 (5.0-8.5); Protein,Urine Negative (Negative); Specific Gravity, Urine >= 1.030 (1.005-1.030); Urobilinogen,Urine 0.2 EU/dl (0.2)
[2025-01-01 07:30] VITALS: BP 115/55; PULSE 55; O2SAT 98
--- NOTE | 2025-01-01 07:37 | CT_ITS ---
FINAL REPORT TECHNIQUE: Noncontrast CT exam of the abdomen and pelvis. This study was performed with techniques to keep radiation doses as low as reasonably achievable (ALARA). Individualized dose reduction techniques using automated exposure control or adjustment of mA and/or kV according to the patient's size were employed. CLINICAL HISTORY: N/V, elevated lipase COMPARISON: None FINDINGS: Abdomen: Lung bases are clear. Liver, spleen, pancreas and adrenal glands have a normal CT appearance in their limited unenhanced state. The gallbladder is unremarkable. There are no CT findings of pancreatitis. The bowel is unremarkable. The kidneys show no stone disease or obstruction. No obvious renal mass is present. No ureteral stones are present. Pelvis: No distal ureteral stones are seen. The appendix is not visualized but there are no secondary signs of appendicitis. Bladder is unremarkable. No fluid collection or adenopathy is seen. IMPRESSION: Unremarkable CT of the abdomen and pelvis without contrast, specifically no CT findings of pancreatitis are identified. Reviewed, Interpreted and Dictated by Chaka Sandhu MD Transcribed by Guillermina Harris Authenticated and [facility]
[2025-01-01 07:55] LABS: Bacteria,Urine Trace /lpf
[2025-01-01 08:03] LABS: Triglycerides 50 mg/dl (30-150)
[2025-01-01 08:26] VITALS: BP 115/55; PULSE 58; RESP 16; TEMP 36.8; O2SAT 97
== END 2025-01-01 08:27 | disposition home or self-care (01) ==
PROVIDERS: Student in an Organized Health Care Education/Training Program; Emergency Provider Emergency Medicine
DX: R10.84 Generalized abdominal pain (principal); R11.2 Nausea with vomiting, unspecified; R74.8 Abnormal levels of other serum enzymes
CPT/HCPCS: 74176; 80053; 81001; 83690; 83735; 84478; 85025; 96374; 96375; 99285; J1885; J2405